=== PATIENT | female | born 1990 | race Asian ===

== ENCOUNTER 2018-03-28 18:01 | Emergency (ER) | payer BC ==
[~2018-03-28] VITALS: Wt 43.5 kg
[~2018-03-28 18:01] MED LIST: BENADRYL25 M1 PO
[2018-03-28] MEDS ORDERED: IBUPROFEN600 MG PO (19:37)
[2018-03-28] MEDS ORDERED: ROBAXIN500 M1 PO (19:37)
== END 2018-03-28 19:45 | disposition home or self-care (01) ==
LOC: ED 18:01
DX: M62.838 Other muscle spasm (principal); M54.2 Cervicalgia

== ENCOUNTER 2018-03-31 10:42 | Inpatient (IN) | payer BC ==
[~2018-03-31] VITALS: Ht 152.4 cm; Wt 37.6 kg
--- NOTE | ~2018-03-31 | CON ---
[place], [place] REPORT OF CONSULTATION [id number] UNIT #: [id number] ROOM: 516 DOCTOR: FARIBA WHALEN MD BIRTHDATE: [birth year] DOS: 03/31/2018 CARDIOLOGY CONSULT REASON FOR CONSULTATION: Chest pain. HISTORY OF PRESENT ILLNESS: The patient is a 28-year-old woman who has no previous history of heart disease. She states that about 3 weeks ago, she was doing some heavy lifting, helping her aunt move into her home. After that, she began to experience back pains, which radiated into her neck and arms. Later, she began noticing pains in her chest. She states that it hurts to twist or turn. It also hurts to reach out or lift. Her chest is sore to touch. She also feels weak and tired and has noted palpitations lately. She finds all of this very stressful. Up until today, her pains only occurred with exertion, but today she began noticing pains at rest. She became concerned and came to the Emergency Room. In the ER, her electrocardiogram showed no acute changes. Her initial troponin level was normal. Her chest x-ray showed no abnormalities and a CT angiogram of the chest was also unremarkable. We were asked to assist in her assessment. The patient denies any previous history of heart disease or chest pain prior to the last few weeks. She denies any history of rheumatic fever or heart murmur. She denies any personal history of hypertension, diabetes, heart attack or stroke and denies any family history of early coronary disease. PAST HISTORY: Negative for hypertension, diabetes, hyperlipidemia, myocardial infarction, stroke, rheumatic fever or heart murmur. MEDICATIONS: Prior to admission included ibuprofen 600 mg t.i.d. p.r.n., Robaxin 500 mg b.i.d. p.r.n. and omeprazole 20 mg daily. ALLERGIES: The patient has no known drug allergies. REVIEW OF SYSTEMS: The patient denies diplopia or loss of vision. She denies focal weakness. She denies lightheadedness or syncope. She has been fatigued lately and feels that she is under stress. She denies nausea or vomiting. She denies fevers, chills, sweats or recent weight change. She has had soreness in her back, neck and arms as well as in her chest. She denies hemoptysis or hematemesis. She denies any change in bowel or bladder habits and denies blood in her stools or urine. She denies any new skin rashes. She denies any peripheral edema or leg pains. The remainder of the review of systems is negative except as noted above. SOCIAL HISTORY: The patient does not smoke or consume alcohol. PHYSICAL EXAMINATION: GENERAL: Reveals a slender white female who is awake, alert and oriented. VITAL SIGNS: Pulse is 92 and regular, blood pressure is 138/61. She has temperature of 99.3. She weighs 37.6 kg and has a body mass index of 16.2. HEENT: Normocephalic and atraumatic. Extraocular muscles are intact. [place], [place] REPORT OF CONSULTATION NAME: SAULO ALVA UNIT #: [id number] ROOM: 516 DOCTOR: FARIBA WHALEN MD BIRTHDATE: [birth year] are clear. Pupils equal, round and react to light. The oral mucosa is moist. Tongue is midline. NECK: Supple. She has no jugular distention. Carotids are full. I heard no bruits. She had no neck or supraclavicular masses, no thyromegaly. LUNGS: Respirations were unlabored. Her chest was clear to auscultation and percussion. She had no presacral edema. She did have chest wall tenderness especially involving the anterior chest and palpation of her parasternal regions and lower rib margins did reproduce her pain. CARDIOVASCULAR: Heart had a regular rhythm. There were no murmurs, rubs or gallops. The PMI was not displaced and there was no precordial heave, lift or thrill. ABDOMEN: Soft and normally active without masses, organomegaly or bruits. EXTREMITIES: Showed no clubbing, cyanosis or edema. Peripheral pulses were palpable in the feet. She had no palpable cords or Homans sign. DIAGNOSTIC DATA: I reviewed her electrocardiogram, which showed sinus rhythm and was a normal tracing. LABORATORY DATA: Hemoglobin is 14, hematocrit 41.8, white count 8900, platelet count 296,000. Sodium 139, potassium 3.6, BUN 6, creatinine 0.72. IMPRESSION: Musculoskeletal chest pain. PLAN: We will review her echocardiogram to make sure that there are no signs of pericarditis; however, her exam and electrocardiogram do not suggest this diagnosis. CAT scan of the chest did not show any pericardial effusion. If her echocardiogram shows normal wall motion and her troponins remain negative, then no further cardiac workup would be indicated. I thank, Dr. Victoria and the hospitalist physicians for asking our advice regarding the patient's care. FARIBA WHALEN MD CM:CONSTR:REPORT OF CONSULTATION 1709 04/07/18 0746 interface
--- NOTE | ~2018-03-31 | PR ---
[place], [place] PROGRESS NOTE [id number] UNIT #: [id number] ROOM: 516 DOCTOR: FARIBA WHALEN MD BIRTHDATE: [birth year] DOS: 04/01/2018 CARDIOLOGY PROGRESS NOTE SUBJECTIVE: The patient was seen today at her bedside for followup of her atypical chest pain. Overnight, she has had nothing unusual on the monitor. Her heart rate has varied appropriately for her age. I did review her echocardiogram and it was a normal study. The patient still complains of some tenderness in her left anterior chest, but nothing else. PHYSICAL EXAMINATION: VITAL SIGNS: Today, her pulse is 77 and regular, blood pressure is 101/60. She is afebrile. NECK: Supple. She has no jugular distention. Carotids are full. LUNGS: Respirations are unlabored. Her chest is clear. HEART: Has a regular rhythm without murmurs, rubs or gallops. The PMI was not displaced. There was no precordial heave, lift, thrill and no rub. ABDOMEN: Soft and normally active without masses, organomegaly or bruits. EXTREMITIES: Showed no clubbing, cyanosis or edema. IMPRESSION: Musculoskeletal chest pain. PLAN: No other cardiac workup is indicated at this time. We will sign off, but remain available as needed and I thank the hospitalist physicians for asking our advice regarding her care. FARIBA WHALEN MD CM:PNTRANS [id number] FARIBA WHALEN MD 04/01/18 1854 interface
[~2018-03-31 10:42] MED LIST changes: +IBUPROFEN600 MG PO; +ROBAXIN500 M1 PO
[2018-03-31 10:43] VITALS: BP 132/76
[2018-03-31] MEDS ORDERED: OMEPRAZOLE20 M2 PO (11:12)
[2018-03-31 11:13] LABS: BASO # 0.1 10*3/uL (0.0-0.1); BASO % 0.9 % (0.0-1.0); EOS # 0.1 10*3/uL (0.0-0.4); EOS % 1.2 % (1.0-4.0); HEMATOCRIT 41.8 % (37.0-47.0); LYMPH # 1.5 10*3/uL (1.3-4.4); LYMPH % 17.2 % (27.0-41.0); MEAN CELL VOLUME 91.7 fl (81.0-99.0); MEAN CORPUSCULAR HGB 30.7 pg (27.0-31.0); MEAN CORPUSCULAR HGB CONC 33.5 g/dl (33.0-37.0); MEAN PLATELET VOLUME 9.5 fl (9.6-12.3); MONO # 0.6 10*3/uL (0.1-1.0); MONO % 6.5 % (3.0-9.0); NEUT # 6.6 10*3/uL (2.3-7.9); NEUT % 73.9 % (47.0-73.0); PLATELET COUNT AUTOMATED 296 10*3/uL (130-400); RED BLOOD COUNT 4.56 10*6/uL (4.10-5.10); RED CELL DISTRI WIDTH 11.3 % (0-14.5); WHITE BLOOD COUNT 8.9 10*3/uL (4.8-10.8)
[2018-03-31 11:21] LABS: ACT PARTIAL THROMBO TIME 24.6 SECONDS (20.8-31.5)
[2018-03-31 11:31] LABS: ALBUMIN 4.1 gm/dl (3.1-4.5); ALKALINE PHOSPHATASE 56 U/L (45-117); BUN 6 mg/dl (7-24); CHLORIDE 107 mmol/L (98-107); CREATININE 0.72 mg/dL (0.55-1.02); LIPASE 133 U/L (73-393); POTASSIUM 3.6 mmol/L (3.5-5.1); SGOT/AST 15 IU/L (3-35); SGPT/ALT 23 U/L (12-78); SODIUM 139 mmol/L (136-145); TOTAL PROTEIN 8.4 gm/dL (6.4-8.2)
[2018-03-31 11:32] LABS: BETA-HCG, QUANT < 1.0 mIU/mL (1-3); TROPONIN I < 0.015 ng/ml (<0.045)
[2018-03-31 12:00] VITALS: BP 128/66
[2018-03-31 15:21] VITALS: BP 130/68
[2018-03-31 16:00] VITALS: BP 138/61
[2018-03-31 20:00] VITALS: BP 96/51
[2018-04-01] VITALS: BP 105/50
[2018-04-01 07:08] LABS: BASO # 0.1 10*3/uL (0.0-0.1); BASO % 0.7 % (0.0-1.0); EOS # 0.2 10*3/uL (0.0-0.4); EOS % 1.6 % (1.0-4.0); HEMOGLOBIN 14.1 g/dl (12.0-16.0); LYMPH # 1.4 10*3/uL (1.3-4.4); LYMPH % 14.7 % (27.0-41.0); MEAN CELL VOLUME 93.1 fl (81.0-99.0); MEAN CORPUSCULAR HGB 30.5 pg (27.0-31.0); MEAN CORPUSCULAR HGB CONC 32.8 g/dl (33.0-37.0); MEAN PLATELET VOLUME 9.5 fl (9.6-12.3); MONO # 0.6 10*3/uL (0.1-1.0); MONO % 6.8 % (3.0-9.0); NEUT # 7.1 10*3/uL (2.3-7.9); PLATELET COUNT AUTOMATED 312 10*3/uL (130-400); RED BLOOD COUNT 4.62 10*6/uL (4.10-5.10); RED CELL DISTRI WIDTH 11.4 % (0-14.5); WHITE BLOOD COUNT 9.4 10*3/uL (4.8-10.8)
[2018-04-01 07:22] LABS: BUN 12 mg/dl (7-24); CHLORIDE 104 mmol/L (98-107); CHOLESTEROL 123 mg/dL (<200); CREATININE 0.75 mg/dL (0.55-1.02); FREE T4 1.13 ng/dl (0.76-1.46); HDL CHOLESTEROL 60 mg/dl (40-60); LDL CHOLESTEROL 56 mg/dL (9-159); SODIUM 138 mmol/L (136-145); TRIGLYCERIDES 36 mg/dl (<150); VLDL CHOLESTEROL 7 mg/dL (6-40)
[2018-04-01 08:00] VITALS: BP 101/60
[2018-04-01 08:33] LABS: VITAMIN D, 25-HYDROXY 20.9 ng/mL (30-100)
[2018-04-01 12:00] VITALS: BP 106/54
[2018-04-01] MEDS ORDERED: CELEXA20 MG PO (13:00)
== END 2018-04-01 14:40 | disposition home or self-care (01) | DRG 313 ==
LOC: ED 10:42 → EDHOLD 14:14 → 5E 14:14
PROVIDERS: Emergency Medicine; Internal Medicine
DX: R07.89 Other chest pain (principal); F32.9 Major depressive disorder, single episode, unspecified; Z68.1 Body mass index [BMI] 19.9 or less, adult; K21.9 Gastro-esophageal reflux disease without esophagitis; R00.2 Palpitations; M94.0 Chondrocostal junction syndrome [Tietze]; R63.6 Underweight; Z80.0 Family history of malignant neoplasm of digestive organs; Z79.899 Other long term (current) drug therapy

== ENCOUNTER → 2020-05-22 | Outpatient (CLI) | payer BC ==
[~2020-05-22] MED LIST changes: +CELEXA20 MG PO; +OMEPRAZOLE20 M2 PO
== END | disposition home or self-care (01) ==
LOC: COVID19 00:14
DX: R51 Headache (principal); R50.9 Fever, unspecified; Z20.828 Contact with and (suspected) exposure to other viral communicable diseases

== ENCOUNTER 2024-02-24 17:46 | Emergency (ER) | payer BC ==
[~2024-02-24] VITALS: Wt 40.4 kg
[2024-02-24] MEDS ORDERED: SERTRALINE HYD100 MG PO (20:00)
[2024-02-24] MEDS ORDERED: FLUOROMETHOLONE 0.1% OPH ONE (20:35)
[2024-02-24] MEDS ORDERED: FLUORESCEIN SODIUM 1 MG STRIP OPH ONE (21:05)
[2024-02-24] MEDS ORDERED: ERYTHROMYCIN OPH1 GM OPH (21:36)
== END 2024-02-24 21:58 | disposition home or self-care (01) ==
LOC: ED 17:46
DX: H10.9 Unspecified conjunctivitis (principal); Z88.8 Allergy status to other drugs, medicaments and biological substances; Z79.899 Other long term (current) drug therapy